=== PATIENT | female | born 1940 | race Caucasian/White ===

== ENCOUNTER → 2017-11-19 | Day surgery (SDC) | payer MEDICARE, BC ==
[~2017-11-19] VITALS: Ht 167.6 cm; Wt 59.3 kg
[~2017-11-19] MED LIST: APREPITANT 40 MG CAP ONE; APREPITANT 40 MG CAP PO ONE; ASPI81CH6 PO; ASPI81TA82 PO; BIOT1000 PO; BIOTCAP PO; CHLORHEXIDINE GLUCONATE 2 % 1 PACK (2 CLOTHS) TOPICAL PRN; DEXAMETHASONE SOD PHOS 4 MG/ML VIAL IV ONE; DO NOT ADM ANY ANTICOAGULANT DRUGS PRN; EZET10 PO; FERRIC SUBSULFATE 8 ML TOP SOLN TOPICAL ONE; FISH1000 PO; KETOROLAC TROMETHAMINE 30 MG/ML (IVP) VIAL IV PUSH PRN; KETOROLAC TROMETHAMINE 30 MG/ML (IVP) VIAL ONE; LACTATED RINGER'S 1000 ML INJ 1,000 ML IV ONE; LACTATED RINGER'S 1000 ML IV PRN; LIDOCAINE HCL 1% PF 5 ML SYRINGE OTHER ONE; METO25CR PO; METO25TA3 PO; METO50CR PO; METO50TA PO; METOPROLOL TARTRATE 25 MG TAB PO PRN; MIDAZOLAM HCL 2 MG/2 ML VIAL ONE; MOEX15TA PO; MULT-65 PO; OCUVTAB4 PO; ONDANSETRON HCL 4 MG/2 ML VIAL IV ONE; POVIDONE IODINE 5% (ANTISEPSIS KIT) 4 APPLICATIONS EACH NARE PRN; PREM0.622 VAGINAL; PRESCAP5 PO; PROPOFOL 200 MG/20 ML AMP IV ONE; REST0.05 EACH EYE; SODIUM CHLORID 0.9% 500 ML IV PRN; SUCCINYLCHOLINE CHLORIDE 200 MG/10 ML VIAL IV ONE; TAB-TAB PO; VITA1000 PO; VITA250C3 CHEW; VITATAB25 PO
--- NOTE | 2017-11-19 14:10 | MP ---
cc: Meaghan Zepeda MD,Юлия Powell DATE OF OPERATION: 11/19/2017 DATE OF PROCEDURE: 11/19/2017 PREOPERATIVE DIAGNOSES: 1. Postmenopausal bleeding. 2. 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 POSTOPERATIVE DIAGNOSES: 1. Postmenopausal bleeding. 2. 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 3. Right-sided pelvic mass. PROCEDURE PERFORMED: Examination under anesthesia, fractional dilation and curettage, cervix biopsy. SURGEON: Meaghan Zepeda MD ACTIVITIES COORDINATOR: Joe first cook. ANESTHESIA: Laryngeal mask anesthesia. ESTIMATED BLOOD LOSS: 20 mL. PATIENT HISTORY: A 77-year-old female, postmenopausal bleeding, had an outside evaluation, a CAT scan that showed no overt evidence of metastatic disease. There was a mucinous polypoid growth that was removed from the endocervix that showed atypical cells. 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 She was seen in our office and counseled, and given that the cervix and the endometrium both showed cells that were abnormal, it was recommended that we try to further clarify the origin and extent of the problem, so that we can make more specific ultimate treatment recommendations. She is seen again in the preop holding area where the findings and plan of care were reviewed. Questions were asked and answered. She expressed understanding and agreed. FINDINGS: On exam under anesthesia, there is no appreciably enlarged inguinal lymph nodes. External genitalia without mass or lesion. The cervix grossly appears normal, but is firm in consistency and there is a collection of mucin in the endocervical canal that grossly is suggestive of a nabothian cyst. The cervix is circumferentially smooth around the perimeter in the uterus and cervix are mobile. The uterine cavity sounds to 6 cm. On the right side, there is an approximately 3 cm mass-like fullness that seems to be contiguous with the lower uterine segment on the right side of the uterus as it moves with motion and palpation of the uterus and cervix, but does not seem to be a parametrial infiltration. It is possible that it could be an ovary that is adherent to the right side of the uterus. No other mass or nodularity detected. On curetting, there was mucinous tissue obtained from the endocervix. There was a mild to moderate amount of tissue obtained from the endometrium that had some polypoid fragments that appeared abnormal such that if neoplasm is indeed present, it appears to most likely be arising from the endometrium. To ensure clarification, given that the cervix itself was quite firm, several biopsies were taken from the ectocervix and were also sent for permanent histopathologic analysis. DESCRIPTION OF PROCEDURE: She was taken to the operating room and placed in dorsal lithotomy position, and after laryngeal mask anesthesia was administered, timeout was undertaken, she was identified by site recognition and hospital ID talia and the proposed procedure was reviewed and confirmed. She was carefully positioned in lithotomy position. Exam under anesthesia was performed, prepped and draped in sterile fashion, and in-and-out catheterization of bladder was performed. Tenaculum was placed on the cervix. Followup exam was performed with findings as described above. Endocervical curetting was obtained with multiple passes circumferentially through the endocervical canal with predominantly mucus obtained and some scant amount of tissue. The cervix was dilated further to allow for a small endometrial curet with curettings performed circumferentially, multiple passes with tissue as obtained above posteriorly and the uterine wall of the endometrium was gritty and it seemed normal as did the anterior wall. There was some polypoid fullness and smoothness along the right and left fundal regions of the endometrium. Cervix biopsies were then taken at the 2 o'clock, 6 o'clock and 10 o'clock positions where the cervix felt firm, although there was no grossly visible neoplasm, biopsies were taken to ensure that there was no infiltrative tumor below the surface. All sites were rendered hemostatic with topical Monsel's solution. The tenaculum was removed and the tenaculum site was rendered hemostatic with Monsel's solution. Pelvic exam confirmed all sites were hemostatic. There were no remaining foreign objects in the vagina. Preliminary and final counts were correct. She was returned to dorsal supine position and pending reversal of anesthesia,when I left the operating room to precede her to the postanesthesia care unit. MD GURPREET Castillo/RENZO , 01:27 PM , 02:09 PM
[2017-11-19 14:55] VITALS: BP 176/81; PULSE 57; RESP 18; TEMP 97.7; O2SAT 98
== END | disposition home or self-care (01) ==
LOC: HSDC 08:18
PROVIDERS: ATTEND Obstetrics & Gynecology Gynecologic Oncology
DX: C54.1 Malignant neoplasm of endometrium (principal); N95.0 Postmenopausal bleeding; I10 Essential (primary) hypertension
CPT/HCPCS: 00940; 58120; 86850; 86900; 86901; 88305; 88341; 88342; J0330; J1100; J1885; J2250; J2405; J3010; J7120; J8501

== ENCOUNTER 2017-12-03 05:46 | Observation (INO) | payer MEDICARE, BC ==
[~2017-12-03] VITALS: Ht 167.6 cm; Wt 58.5 kg
[~2017-12-03 05:46] MED LIST changes: -APREPITANT 40 MG CAP ONE; -APREPITANT 40 MG CAP PO ONE; -ASPI81TA82 PO; -BIOTCAP PO; -CHLORHEXIDINE GLUCONATE 2 % 1 PACK (2 CLOTHS) TOPICAL PRN; -DEXAMETHASONE SOD PHOS 4 MG/ML VIAL IV ONE; -DO NOT ADM ANY ANTICOAGULANT DRUGS PRN; -FERRIC SUBSULFATE 8 ML TOP SOLN TOPICAL ONE; -FISH1000 PO; -KETOROLAC TROMETHAMINE 30 MG/ML (IVP) VIAL IV PUSH PRN; -KETOROLAC TROMETHAMINE 30 MG/ML (IVP) VIAL ONE; -LACTATED RINGER'S 1000 ML INJ 1,000 ML IV ONE; -LACTATED RINGER'S 1000 ML IV PRN; -LIDOCAINE HCL 1% PF 5 ML SYRINGE OTHER ONE; +METO-426 PO; -METO25CR PO; -METO25TA3 PO; -METO50CR PO; -METO50TA PO; -METOPROLOL TARTRATE 25 MG TAB PO PRN; -MIDAZOLAM HCL 2 MG/2 ML VIAL ONE; -ONDANSETRON HCL 4 MG/2 ML VIAL IV ONE; -POVIDONE IODINE 5% (ANTISEPSIS KIT) 4 APPLICATIONS EACH NARE PRN; -PREM0.622 VAGINAL; -PRESCAP5 PO; -PROPOFOL 200 MG/20 ML AMP IV ONE; -SODIUM CHLORID 0.9% 500 ML IV PRN; -SUCCINYLCHOLINE CHLORIDE 200 MG/10 ML VIAL IV ONE; -TAB-TAB PO; -VITATAB25 PO
[2017-12-03] MEDS ORDERED: HEPARIN SODIUM - SQ 10,000 UNITS/ML VIAL SQ SCH (06:15)
[2017-12-03] MEDS ORDERED: LACTATED RINGER'S 1000 ML IV PRN (06:15)
[2017-12-03] MEDS ORDERED: CHLORHEXIDINE GLUCONATE 2 % 1 PACK (2 CLOTHS) TOPICAL PRN (06:15)
[2017-12-03] MEDS ORDERED: POVIDONE IODINE 5% (ANTISEPSIS KIT) 4 APPLICATIONS EACH NARE PRN (06:15)
[2017-12-03] MEDS ORDERED: ceFAZolin 1,000 MG/NS 100 ML IV SCH ×2 (06:15)
[2017-12-03] MEDS ORDERED: INSULIN HUMAN REGULAR 1,000 UNITS/10 ML VIAL SQ PRN (06:15)
[2017-12-03] MEDS ORDERED: SODIUM CHLORID 0.9% 500 ML IV PRN (06:15)
[2017-12-03] MEDS ORDERED: METOPROLOL TARTRATE 25 MG TAB PO PRN (06:15)
[2017-12-03] MEDS ORDERED: ACETAMINOPHEN 1000 MG/100 ML 100 ML IV ONE (06:51)
[2017-12-03 06:54] LABS: AUTOMATED NEUTROPHIL # 3.4 TH/MM3 (1.8-7.7); BASOPHIL % 0.8 % (0.0-2.0); EOSINOPHIL % 0.8 % (0.0-4.0); HEMATOCRIT 39.6 % (35.0-46.0); HEMOGLOBIN 13.4 GM/DL (11.6-15.3); LYMPH % 16.9 % (9.0-44.0); LYMPHOCYTE # 0.8 TH/MM3 (1.0-4.8); MEAN CELL VOLUME 90.8 FL (80.0-100.0); MEAN CORPUSCULAR HEMOGLOBIN 30.7 PG (27.0-34.0); MEAN CORPUSCULAR HGB CONC 33.8 % (32.0-36.0); MEAN PLATELET VOLUME 9.3 FL (7.0-11.0); MONO % 9.7 % (0.0-8.0); MONOCYTE # 0.5 TH/MM3 (0-0.9); NEUT % 71.8 % (16.0-70.0); PLATELET COUNT 156 TH/MM3 (150-450); RED BLOOD COUNT 4.36 MIL/MM3 (4.00-5.30); RED CELL DISTRIBUTION WIDTH 13.1 % (11.6-17.2); WHITE BLOOD COUNT 4.7 TH/MM3 (4.0-11.0)
[2017-12-03 07:03] LABS: INTERNATIONAL NORMALIZED RATIO 1.1 RATIO; PROTHROMBIN TIME - PATIENT 11.2 SEC (9.8-11.6)
[2017-12-03] MEDS ORDERED: APREPITANT 40 MG CAP ONE (07:14)
[2017-12-03 07:28] LABS: ALBUMIN 4.1 GM/DL (3.4-5.0); ALT (GPT) 39 U/L (10-53); AST (GOT) 33 U/L (15-37); BICARBONATE 29.2 MEQ/L (21.0-32.0); BLOOD UREA NITROGEN 9 MG/DL (7-18); CHLORIDE 104 MEQ/L (98-107); CREATININE 0.76 MG/DL (0.50-1.00); GLOMERULAR FILTRATION RATE 73 ML/MIN (>89); GLUCOSE,RANDOM 91 MG/DL (74-106); SODIUM (NA) 142 MEQ/L (136-145)
[2017-12-03 07:30] LABS: ALKALINE PHOSPHATASE 73 U/L (45-117); TOTAL BILIRUBIN ADULT 0.8 MG/DL (0.2-1.0)
[2017-12-03] MEDS ORDERED: LIDOCAINE 1%/EPINEPHrine 1:100,000 SOLN 20 ML VIAL INFIL ONE (08:43)
[2017-12-03] MEDS ORDERED: DO NOT ADM ANY ANTICOAGULANT DRUGS PRN (11:07)
[2017-12-03] MEDS ORDERED: *MEPERIDINE 25 MG INJ VIAL PERIprocedural Use ONLY ONE (11:11)
[2017-12-03] MEDS ORDERED: LORazepam 0.5 MG TAB PO PRN (11:15)
[2017-12-03] MEDS ORDERED: ONDANSETRON HCL 4 MG/2 ML VIAL IVP PRN (11:15)
[2017-12-03] MEDS ORDERED: diphenhydrAMINE HCL 25 MG CAP PO PRN (11:15)
[2017-12-03] MEDS ORDERED: SODIUM CHLORIDE 0.9% FLUSH 10 ML FLUSH IV FLUSH PRN (11:15)
[2017-12-03] MEDS ORDERED: traMADol HCL 50 MG TAB PO PRN (11:15)
[2017-12-03] MEDS ORDERED: MIDAZOLAM HCL 2 MG/2 ML VIAL ONE (11:17)
[2017-12-03] MEDS ORDERED: *ONDANSETRON 4 MG VIAL PERIprocedural Use ONLY ONE (11:43)
[2017-12-03] MEDS ORDERED: *morphine SULFATE 4 MG/ML PERIprocedure ONLY ONE (11:46)
[2017-12-03] MEDS ORDERED: NEOSTIGMINE 5 MG/5 ML SYRINGE IV PUSH ONE (12:00)
[2017-12-03] MEDS ORDERED: GLYCOPYRROLATE 1 MG/5 ML SYRINGE IV PUSH ONE (12:00)
[2017-12-03] MEDS ORDERED: ONDANSETRON HCL 4 MG/2 ML VIAL IV ONE (12:00)
[2017-12-03] MEDS ORDERED: KETOROLAC TROMETHAMINE 30 MG/ML (IVP) VIAL IV PUSH ONE (12:00)
[2017-12-03] MEDS ORDERED: DEXAMETHASONE SOD PHOS 4 MG/ML VIAL IV ONE (12:00)
[2017-12-03] MEDS ORDERED: hydrALAZINE HCL 20 MG/ML VIAL IV ONE (12:00)
[2017-12-03] MEDS ORDERED: ROCURONIUM INJ 50 MG/5 ML SYRINGE IV PUSH ONE (12:00)
[2017-12-03] MEDS ORDERED: ePHEDrine/NS 25 MG/5 ML SYRINGE IV ONE (12:00)
[2017-12-03] MEDS ORDERED: LIDOCAINE HCL 1% PF 5 ML SYRINGE OTHER ONE (12:00)
[2017-12-03] MEDS ORDERED: PROPOFOL 200 MG/20 ML AMP IV ONE (12:00)
[2017-12-03] MEDS ORDERED: PHENYLEPH/NS 1000 MCG/10 ML SYR IV ONE (12:00)
[2017-12-03] MEDS: D5-1/2 NS + KCL 20 MEQ INJ 1,000 ML IV SCH ×2 (12:40→22:40)
[2017-12-03 13:45] VITALS: BP 141/80; PULSE 80; RESP 18; TEMP 95.2; O2SAT 99
--- NOTE | 2017-12-03 14:04 | EKG ---
Date Performed: 12/03/2017 Time Performed: 06:48:16 PTAGE: 77 years EKG: Sinus rhythm ANTEROSEPTAL MYOCARDIAL INFARCTION , OF INDETERMINATE AGE ABNORMAL ECG NO PREVIOUS TRACING DOCTOR: Jeannette Poe Interpretating Date/Time 12/03/2017 13:59:40
--- NOTE | 2017-12-03 15:07 | PD.ONC.PN ---
Subjective Subjective Remarks post op note: pt is resting in bed with daughter at bedside only c/o nausea, daughter tells me her mom is sensitive to medications...explained the IV narcotics she received could be causing nausea. I explained that she would be getting scheduled Toradol for pain but if she needed anything additional then she could ask for Tramadol that is ordered for her. states pain is controlled at this time. Objective Data Date Time Temp Pulse Resp B/P (MAP) Pulse Ox O2 Delivery O2 Flow Rate FiO2 12/03/17 13:45 95.2 80 18 141/80 (100) 99 12/03/17 13:00 97.4 70 16 124/56 (78) 100 Nasal Cannula 2 12/03/17 12:30 70 16 129/63 (85) 98 Nasal Cannula 2 12/03/17 12:15 62 16 147/65 (92) 98 Nasal Cannula 2 12/03/17 12:00 70 16 132/68 (89) 98 Nasal Cannula 2 12/03/17 11:45 68 16 138/69 (92) 99 Nasal Cannula 2 12/03/17 11:30 96.1 66 16 138/67 (90) 98 Nasal Cannula 2 12/03/17 11:15 72 16 146/71 (96) 98 Nasal Cannula 2 12/03/17 11:04 96.7 78 16 134/65 (88) 98 Nasal Cannula 2 12/03/17 06:30 98.3 61 16 179/98 (125) 95 12/03/17 12/03/17 12/03/17 06:59 14:59 22:59 Intake Total 2600 ml Output Total 2550 ml Balance 50 ml Result Diagram: 12/03/17 0640 12/03/17 0640 Laboratory Results Laboratory Tests Test 12/03/17 06:40 White Blood Count 4.7 TH/MM3 Red Blood Count 4.36 MIL/MM3 Hemoglobin 13.4 GM/DL Hematocrit 39.6 % Mean Corpuscular Volume 90.8 FL Mean Corpuscular Hemoglobin 30.7 PG Mean Corpuscular Hemoglobin Concent 33.8 % Red Cell Distribution Width 13.1 % Platelet Count 156 TH/MM3 Mean Platelet Volume 9.3 FL Neutrophils (%) (Auto) 71.8 % Lymphocytes (%) (Auto) 16.9 % Monocytes (%) (Auto) 9.7 % Eosinophils (%) (Auto) 0.8 % Basophils (%) (Auto) 0.8 % Neutrophils # (Auto) 3.4 TH/MM3 Lymphocytes # (Auto) 0.8 TH/MM3 Monocytes # (Auto) 0.5 TH/MM3 Eosinophils # (Auto) 0.0 TH/MM3 Basophils # (Auto) 0.0 TH/MM3 CBC Comment DIFF FINAL Differential Comment Prothrombin Time 11.2 SEC Prothromb Time International Ratio 1.1 RATIO Activated Partial Thromboplast Time 25.9 SEC Blood Urea Nitrogen 9 MG/DL Creatinine 0.76 MG/DL Random Glucose 91 MG/DL Total Protein 7.0 GM/DL Albumin 4.1 GM/DL Calcium Level 9.0 MG/DL Alkaline Phosphatase 73 U/L Aspartate Amino Transf (AST/SGOT) 33 U/L Alanine Aminotransferase (ALT/SGPT) 39 U/L Total Bilirubin 0.8 MG/DL Sodium Level 142 MEQ/L Potassium Level 3.4 MEQ/L Chloride Level 104 MEQ/L Carbon Dioxide Level 29.2 MEQ/L Anion Gap 9 MEQ/L Estimat Glomerular Filtration Rate 73 ML/MIN Administered Medications Medications (Trade) Dose Ordered Sig/Al Route PRN Reason Start Time Stop Time Status Last Admin Dose Admin Heparin Sodium (Porcine) (Heparin Inj) 5,000 units FELLER SEAM OPERATOR SQ 12/03/17 06:15 12/03/17 18:00 12/03/17 06:52 Cefazolin Sodium 1000 mg/Sodium Chloride 100 ml @ 200 mls/hr FELLER SEAM OPERATOR IV 12/03/17 06:15 12/03/17 18:30 12/03/17 07:10 Lactated Ringer's 1,000 ml @ 30 mls/hr Q24H PRN IV SEE LABEL COMMENTS 12/03/17 06:15 12/06/17 06:14 12/03/17 06:30 Povidone Iodine (Betadine 5% Antisepsis Kit) 1 applic FELLER SEAM OPERATOR PRN EACH NARE SEE LABEL COMMENTS 12/03/17 06:15 12/06/17 06:14 12/03/17 06:45 Chlorhexidine Gluconate (Chlorhexidine 2% Cloth) 3 pack FELLER SEAM OPERATOR PRN TOPICAL SEE LABEL COMMENTS 12/03/17 06:15 12/06/17 06:14 12/03/17 06:00 Potassium Chloride/Dextrose/ Sod Cl 1,000 ml @ 100 mls/hr Q10H IV 12/03/17 13:00 12/03/17 12:40 Objective Remarks GENERAL: Well-nourished, well-developed patient. SKIN: Warm and dry. HEAD: Normocephalic. EYES: No scleral icterus. No injection or drainage. CARDIOVASCULAR: Regular rate and rhythm without murmurs. RESPIRATORY: Breath sounds equal bilaterally. No accessory muscle use. GASTROINTESTINAL: SS are c/d/i EXTREMITIES: teds and scds MUSCULOSKELETAL: Adequate muscle tone. NEUROLOGICAL: No obvious focal deficit. Awake, alert, and oriented x3. PSYCHIATRIC: Appropriate mood and affect; insight and judgment normal. Assessment/Plan Problem List: (1) Postoperative nausea ICD Codes: R11.0 - Nausea; Z98.890 - Other specified postprocedural states Status: Acute Plan: Zofran 4 mg was given in PACU will add Reglan 10mg Q 6 hours prn (2) Post-operative state ICD Codes: Z98.890 - Other specified postprocedural states Status: Acute Plan: s/p RA assisted lap hyst with parcial omentectomy and lymph node bx post op orders in chart ADAT as nausea subsides IS to bedside Toradol IV and Tramadol PRN greene to be discharged in the morning will anticipate discharge tomorrow. Derrek Cornejo December 03, 2017 15:07
[2017-12-03] MEDS: METOCLOPRAMIDE HCL 10 MG/2 ML VIAL IV PUSH SCH ×2 (15:26→23:42)
[2017-12-03] MEDS: KETOROLAC TROMETHAMINE 30 MG/ML (IVP) VIAL IVP SCH ×2 (15:26→22:41)
[2017-12-03 20:00] VITALS: BP 124/64; PULSE 77; RESP 18; TEMP 98.5; O2SAT 77
[2017-12-03 20:39] VITALS: O2SAT 99
[2017-12-03] MEDS ORDERED: [UNRECOGNIZED DRUG - OTHER] EACH EYE SCH (21:00)
[2017-12-03] MEDS: SODIUM CHLORIDE 0.9% FLUSH 10 ML FLUSH IV FLUSH SCH (22:41)
[2017-12-04] VITALS: BP 130/64; PULSE 80; RESP 20; TEMP 97.6; O2SAT 98
[2017-12-04] MEDS: KETOROLAC TROMETHAMINE 30 MG/ML (IVP) VIAL IVP SCH ×2 (02:00→09:27)
[2017-12-04 04:00] VITALS: BP 131/66; PULSE 63; RESP 18; TEMP 98.3; O2SAT 99
[2017-12-04 06:11] LABS: AUTOMATED NEUTROPHIL # 10.4 TH/MM3 (1.8-7.7); BASOPHIL % 0.3 % (0.0-2.0); HEMATOCRIT 34.6 % (35.0-46.0); HEMOGLOBIN 11.8 GM/DL (11.6-15.3); LYMPHOCYTE # 0.9 TH/MM3 (1.0-4.8); MEAN CELL VOLUME 90.6 FL (80.0-100.0); MEAN CORPUSCULAR HGB CONC 34.2 % (32.0-36.0); MEAN PLATELET VOLUME 9.5 FL (7.0-11.0); MONO % 7.9 % (0.0-8.0); NEUT % 84.8 % (16.0-70.0); PLATELET COUNT 138 TH/MM3 (150-450); RED BLOOD COUNT 3.82 MIL/MM3 (4.00-5.30); WHITE BLOOD COUNT 12.3 TH/MM3 (4.0-11.0)
[2017-12-04 06:33] LABS: BICARBONATE 27.1 MEQ/L (21.0-32.0); CALCIUM 8.2 MG/DL (8.5-10.1); CREATININE 0.75 MG/DL (0.50-1.00)
--- NOTE | 2017-12-04 07:22 | MP ---
cc: Meaghan Zepeda MD,Loni Powell MD DATE OF OPERATION: 12/03/2017 PREOPERATIVE DIAGNOSIS: Uterine papillary serous carcinoma. POSTOPERATIVE DIAGNOSIS: 1. Uterine papillary serous carcinoma. 2. Intraperitoneal adhesions. PROCEDURE PERFORMED: Robotic-assisted laparoscopic hysterectomy, bilateral salpingo-oophorectomy, partial omentectomy, bilateral pelvic lymph node biopsies, lysis of adhesions. SURGEON: Meaghan Zepeda MD. ROCK CUTTER: Joe dental assistant medical assistant. ANESTHESIA: General endotracheal anesthesia. ESTIMATED BLOOD LOSS: 50 mL. IV FLUIDS: 2500 mL. URINE OUTPUT: 800 mL. HISTORY: A 77-year-old female with postmenopausal bleeding and atypical Pap smear. Further evaluation showed a high grade adenocarcinoma with serous features. It was further evaluated and clarified on fractional dilation and curettage. It seemed to be of endometrial origin. She was counseled regarding these findings. TREATMENT RECOMMENDATIONS: She is seen again in the preop holding area. Questions were asked and answered. She expressed a good understanding and agreed to move forward with surgery. FINDINGS: Uterine cavity sounded to 7 cm. In the peritoneal cavity, the distal omentum was adherent in the pelvis to the right pelvic sidewall. There were loops of small bowel adherent in the same region seemingly consistent with her prior appendectomy. There were also adhesions against the anterior abdominal wall in the region of the prior laparoscopic cholecystectomy incisions. She had some mild diverticulum without overt diverticulitis with some adhesions against the left pelvic sidewall between the colon and the left pelvic sidewall. There were no peritoneal implants. The liver, diaphragm edges were smooth and although the omentum was adherent, it grossly appeared normal. The tubes and ovaries appeared normal except for what appeared to be a paratubal cyst on the right side. There were no overtly neoplastic appearing lymph nodes. There were some borderline prominent lymph nodes. There were a few borderline prominent lymph nodes in the pelvis. No appreciable adenopathy in the paraaortic region. The uterus, once removed for preliminary assessment, showed the tumor to be of endometrial origin with invasion into the myometrium. On preliminary, no overt evidence of extension into the cervix. PROCEDURE: She was taken to the operating room, placed in the dorsal lithotomy position after general endotracheal anesthesia was administered. Time-out was undertaken. She was identified by site recognition and hospital ID bracelet and the proposed procedure was reviewed and confirmed. She was carefully positioned in padded Cno stirrups. Her arms were padded and secured to the sides. She was further secured to the operating table with egg crate padding and tape and across chest over the shoulder fashion. All sites noted to be properly aligned with no malalignment or pressure points. She was prepped and draped in a sterile fashion, placed in high lithotomy position. The cervix grasped. The uterine cavity sounded. Cervix dilated. A standard VCare manipulator inserted and secured in the usual fashion. Langston catheter placed in the bladder. She was returned to low lithotomy position. A change of sterile gloves was undertaken and we completed prepping in anticipation of laparoscopy. Prior to surgery, I had the opportunity to speak with Dr. Chanda Lua, Remote Pilot Operator. She was gracious to answer questions and provide information. She was familiar with Renetta Clay. My questions were regarding her recent repair of retinal detachment and determine if Trendelenburg position for laparoscopy was safe or whether or not there were any contraindications and Dr. Lua had previously cared for this patient and felt that there were no contraindications and the Trendelenburg position should be safe and was not contraindicated and I am grateful for her input. Accordingly, she was placed in slight Trendelenburg position with manual elevation of the abdominal wall and direct laparoscopic visualization. A 5 mm cannula was placed in the left upper quadrant. An atraumatic entry was confirmed. Carbon dioxide gas was insufflated into the peritoneal cavity. An 8 mm cannula was placed in the right upper quadrant, left lateral quadrant and a 12 mm cannula placed in the midline above the umbilicus. Lysis of adhesions was carried out with blunt and sharp dissection to freed the adhesions that were described and to mobilize the tissue, mobilize the bowel from the right lower quadrant so it could be retracted above the pelvic brim and clear the abdominal wall of adhesions. She was placed in a bit more, but limited Trendelenburg just enough to allow the small bowel to be folded back from the pelvis into the abdomen and 3 Ray-Minoo sponges were placed around the root of the small bowel mesentery. After peritoneal washings were obtained for cytology, the anatomy was surveyed with findings as described above. The robotic system was brought into the operative field, attached in the usual fashion. Monopolar scissors, fenestrated bipolar forceps and ProGrasp manipulators were placed in arms number 1, 2 and 3 respectively and I took my place at the surgeon's console. Partial omentectomy was performed. The distal omentum was adherent to the pelvis and vascular tissue was isolated, rendered hemostatic with bipolar cautery and transected in a stepwise fashion removing approximately 1/2 of the infracolic omentum for histopathologic analysis and to free it from its adhesions. Further sharp dissection was carried out to mobilize the terminal ileum from its adhesions so that the bowel could be further reduced and the retracted above the operative field and the distal omentum remained adherent to the right adnexa which was delivered en bloc with the hysterectomy specimen. The right round ligament was isolated, cauterized, and transected. The anterior and posterior leafs of the broad ligament were opened. Right ureter was identified. The right infundibulopelvic ligament was isolated. The intervening peritoneum was opened. Infundibulopelvic ligament was isolated to the level of the pelvic brim where it was cauterized and transected. Posterior peritoneum opened on the right side uterus and cervix. The right vesicouterine peritoneum dissected off the lower uterine segment and cervix. Right uterine vessels were skeletonized, cauterized and transected as were the cardinal, paracervical and uterosacral ligaments. Attention was directed toward the left side. The left round ligament isolated, cauterized, and transected. The anterior and posterior leafs of the broad ligament were opened. Left ureter was identified. Left infundibulopelvic ligament was isolated. Infundibulopelvic ligament was isolated to the level of the pelvic brim where it was cauterized and transected. Additional adhesions were lysed to further mobilize the colon to free adhesions in the cul-de-sac, posterior peritoneum and the vesicouterine peritoneum was dissected off the lower uterine segment as the uterine vessels were skeletonized. The uterine vessels were cauterized and transected as were the cardinal, paracervical and uterosacral ligaments. The right paravesical, pararectal and obturator spaces were opened. Visible and palpable inspection of the lymphatic basin showed there to be a couple of slightly prominent lymph nodes in the external iliac region. These were removed with bipolar cautery and sharp dissection, placed on a Ray-Minoo sponge in the right pericolic gutter. The remainder of the lymphatic basin was carefully inspected with no other adenopathy detected. The paraaortic and paracaval region were inspected and palpated. No adenopathy detected. Attention was redirected toward the left pelvis. In the left pelvis, the left paravesical, obturator and perirectal spaces were developed. Lymphatics were inspected visually and by palpation. There was a slightly prominent lymph node in the external iliac and a couple of prominent lymph nodes in the obturator space each of which were isolated and dissected free with bipolar cautery and sharp dissection combined with the lymphatic tissue from the right side. The lymphatic basin was inspected. No remaining adenopathy. A series of intraperitoneal biopsies were obtained from the pelvis and the abdomen including adhesions that were previously lysed and all of which were grossly normal other than that adhesions. These were placed adjacent to the lymphatic tissue on the Ray-Minoo sponge. Now, attention redirected to the pelvis. Colpotomy was performed the cervix from the upper vagina. The specimen was withdrawn transvaginally which included uterus, cervix, bilateral tubes and ovaries and the attached omentum and a pneumo-occluder balloon was placed in the vagina to maintain pneumoperitoneum. An Endo Catch bag was introduced transvaginally. The Ray-Minoo sponge with the lymphatic tissue and the peritoneal biopsies was placed in the Endo Catch bag and withdrawn transvaginally and the specimens were after delivery and labeled appropriately for permanent histopathologic analysis. The remaining 2 Ray-Minoo sponges in the peritoneal cavity were now withdrawn transvaginally using ring forceps. They were removed individually, inspected and noted to be removed in their entirety. There were no remaining foreign objects in the peritoneal cavity. Preliminary counts were correct. Instruments 1 and 3 exchanged for needle drivers as the 0 Vicryl suture was introduced. The vaginal cuff was closed starting at the left corner full thickness closure incorporating the posterior peritoneum and edge of the uterosacral ligament, tied via instrument tie. The closure was held on countertraction as a running continuous full thickness closure was carried across the vaginal apex to the opposite corner where it was similarly fixed, secured and tied. The needle was cut. The pelvis was thoroughly irrigated. Small bleeders rendered hemostatic with bipolar cautery. There was a good margin between the bladder edge and the vaginal cuff suture line. Good peristalsis of ureters bilaterally. Neurovascular structures were intact. It was felt that all reasonable surgical objectives had been completed. Therefore, the robotic instruments were removed. The robotic system was disengaged from the operative field. I reentered the bedside under sterile condition. We closed the 12 mm fascial defect with 0 Vicryl sutures using a needle fascia closure apparatus. They were tied securely which rendered the fascia completely airtight and hemostatic. Remaining cannulas were withdrawn, carbon dioxide gas was removed from the peritoneal cavity. 3-0 Vicryl subcuticular and 3-0 Vicryl subcutaneous, followed by Steri-Strips were used to close these incisions. She was returned to dorsal lithotomy position. Pelvic exam confirmed the vaginal cuff was well supported and completely hemostatic. There were no vaginal lacerations. There were no remaining foreign objects in the vagina. There was some superficial irritation to the vaginal mucosa with some erythema, but without active bleeding and to assist in continued hemostasis one gram of Andrei hemostatic agent was placed in the vaginal canal and along the vaginal cuff. Final counts were correct. She was returned to dorsal supine position and was pending reversal of anesthesia when I left the operating room to precede her to the postanesthesia care unit. MD GURPREET Castillo/OSORIO , 06:36 AM , 07:21 AM
[2017-12-04] MEDS ORDERED: TRAM50 PO (08:13)
--- NOTE | 2017-12-04 08:29 | MD ---
cc: Meaghan Zepeda MD, Thomas PA DATE OF DISCHARGE: 12/04/2017 PROCEDURE: 12/03/2017, robotic-assisted laparoscopic hysterectomy, bilateral salpingo-oophorectomy, partial omentectomy, bilateral pelvic lymph node biopsies and intraperitoneal biopsies. DIAGNOSIS: Uterine papillary serous carcinoma. HOSPITAL COURSE: She did well in the early postop period. She remained hemodynamically stable, tolerated oral intake, Langston catheter removed pending voiding. In's and out's [id number]. Labs this morning show an H and H of 11.8 and 34.6. Electrolytes normal, BUN and creatinine 7 and 0.75, potassium 3.6. PHYSICAL EXAMINATION: Afebrile, pulse 63-80, respirations 18-20, blood pressure 124 to 141/64 to 80, O2 saturations greater than or equal to 98%. One isolated 77% is noted. It is completely out of line with all the other values. She is asymptomatic and this appears to be an error as her O2 saturations ranged from 98 to 100% throughout the night and currently at 99%. PHYSICAL EXAM: She is alert and oriented x 3 in no acute distress. LUNGS: Clear. CARDIOVASCULAR: Regular rate and rhythm. ABDOMEN: Soft. Incisions clean and dry. GYNECOLOGIC: No bleeding. EXTREMITIES: Nontender. ASSESSMENT: Postoperative day #1, doing well. FINDINGS AT THE TIME OF SURGERY: Preliminary pathology and steps taken were discussed. Activities and restrictions again reviewed. Questions were asked and answered. She expressed a good understanding and agreed. PLAN: I anticipate she will meet criteria for discharge to home today. She is to resume prior medications. She will have a prescription for tramadol if she needs that, otherwise, she can take [id number] pain medications as needed. She is to contact our office to ensure that she has a followup in approximately 2 weeks or to contact our office should she have any questions or problems in the interim. She expressed good understanding and agreed. Meaghan Zepeda MD KLM/DL , 08:16 AM , 08:28 AM
[2017-12-04 08:30] VITALS: BP 145/72; PULSE 62; RESP 18; TEMP 97.9; O2SAT 99
[2017-12-04] MEDS ORDERED: MOEXIPRIL 15 MG PO SCH (09:00)
[2017-12-04] MEDS ORDERED: METOPROLOL TARTRATE 25 MG TAB PO SCH (09:00)
[2017-12-04] MEDS ORDERED: EZETIMIBE 10 MG TAB PO SCH (09:00)
[2017-12-04] MEDS: SODIUM CHLORIDE 0.9% FLUSH 10 ML FLUSH IV FLUSH SCH (09:27)
[2017-12-04] MEDS: METOCLOPRAMIDE HCL 10 MG/2 ML VIAL IV PUSH SCH (09:28)
== END 2017-12-04 13:32 | disposition home or self-care (01) ==
LOC: HSDC 05:46 → HSDI 11:03 → HCIN 13:38
PROVIDERS: ADMIT Obstetrics & Gynecology Gynecologic Oncology; ATTEND Obstetrics & Gynecology Gynecologic Oncology
DX: C54.8 Malignant neoplasm of overlapping sites of corpus uteri (principal); K66.0 Peritoneal adhesions (postprocedural) (postinfection); R11.0 Nausea; I10 Essential (primary) hypertension; R94.31 Abnormal electrocardiogram [ECG] [EKG]; Z01.810 Encounter for preprocedural cardiovascular examination
CPT/HCPCS: 00840; 38570; 58552; 80048; 80053; 85025; 85610; 85730; 86850; 86900; 86901; 88112; 88307; 88309; 88331; 93005; 94150; 96365; 96375; 96376; G0378; J0131; J0360; J0690; J1100; J1644; J1885; J2175; J2250; J2270; J2370; J2405; J2710; J2765; J3010; J3480; J7120; 88305; J8501

== ENCOUNTER 2018-01-08 05:58 | Day surgery (SDC) | payer MEDICARE, BC ==
[~2018-01-08] VITALS: Ht 167.6 cm; Wt 58.2 kg
[~2018-01-08 05:58] MED LIST changes: +TRAM50 PO
[2018-01-08 07:10] VITALS: BP 172/98; PULSE 64; RESP 16; TEMP 97; O2SAT 94
[2018-01-08] MEDS ORDERED: ceFAZolin 2 GM PREMIX 50 ML - implanted port/tunneled catheter insertion IV SCH (07:15)
[2018-01-08] MEDS ORDERED: VANCOMYCIN 1 GM/200 ML PREMIX ON-CALL IV SCH (07:15)
[2018-01-08] MEDS ORDERED: CHLORHEXIDINE GLUCONATE 2 % 1 PACK (2 CLOTHS) TOPICAL SCH (07:15)
[2018-01-08] MEDS ORDERED: POVIDONE IODINE 5% (ANTISEPSIS KIT) 4 APPLICATIONS EACH NARE SCH (07:15)
[2018-01-08 07:35] LABS: AUTOMATED NEUTROPHIL # 3.2 TH/MM3 (1.8-7.7); BASOPHIL # 0.1 TH/MM3 (0-0.2); BASOPHIL % 1.1 % (0.0-2.0); EOSINOPHIL # 0.2 TH/MM3 (0-0.4); EOSINOPHIL % 3.2 % (0.0-4.0); HEMATOCRIT 41.4 % (35.0-46.0); HEMOGLOBIN 13.9 GM/DL (11.6-15.3); LYMPH % 22.3 % (9.0-44.0); LYMPHOCYTE # 1.1 TH/MM3 (1.0-4.8); MEAN CELL VOLUME 90.7 FL (80.0-100.0); MEAN CORPUSCULAR HEMOGLOBIN 30.4 PG (27.0-34.0); MEAN CORPUSCULAR HGB CONC 33.6 % (32.0-36.0); MEAN PLATELET VOLUME 8.7 FL (7.0-11.0); MONOCYTE # 0.6 TH/MM3 (0-0.9); NEUT % 61.4 % (16.0-70.0); PLATELET COUNT 171 TH/MM3 (150-450); RED BLOOD COUNT 4.56 MIL/MM3 (4.00-5.30); RED CELL DISTRIBUTION WIDTH 13.2 % (11.6-17.2); WHITE BLOOD COUNT 5.2 TH/MM3 (4.0-11.0)
[2018-01-08 07:44] LABS: INTERNATIONAL NORMALIZED RATIO 1.1 RATIO; PROTHROMBIN TIME - PATIENT 10.8 SEC (9.8-11.6)
[2018-01-08] MEDS ORDERED: LIDOCAINE 1%/EPINEPHrine 1:100,000 SOLN 30 ML VIAL ONE (07:52)
[2018-01-08] MEDS ORDERED: MIDAZOLAM HCL 5 MG/5 ML VIAL ONE (07:54)
[2018-01-08] MEDS ORDERED: fentaNYL CITRATE 250 MCG/5 ML AMP ONE (07:54)
[2018-01-08 08:50] VITALS: BP 148/72; PULSE 75; RESP 18; TEMP 97.5; O2SAT 93
[2018-01-08] MEDS ORDERED: SODIUM CHLORIDE 0.9% FLUSH 10 ML FLUSH IVF PRN (09:00)
[2018-01-08 09:05] VITALS: BP 136/67; PULSE 69; RESP 18; O2SAT 92
[2018-01-08 09:35] VITALS: BP 152/70; PULSE 63; RESP 18; O2SAT 92
[2018-01-08 10:05] VITALS: BP 166/80; PULSE 64; RESP 16; O2SAT 94
[2018-01-08 10:35] VITALS: BP 152/73; PULSE 65; RESP 18; O2SAT 95
--- NOTE | 2018-01-08 14:39 | RADRPT ---
EXAM DATE: 01/08/2018 9:02 AM EDT AGE/SEX: 77 years / Female INDICATIONS: Patient presents with uterine cancer in need of port placement for chemotherapy treatme nt. CLINICAL DATA: This is the patient's initial encounter. Patient reports that signs and symptoms have been present for 2 months and indicates a pain score of 0/10. MEDICAL/SURGICAL HISTORY: . HTNEndometrial cancer . T and ACataract surgeryTubal ligation COMPARISON: No prior exams available for comparison. FLUORO TIME (min): 1.07 IMAGE SERIES: 2 SEDATION TIME (min): 30 MEDICATION(S): 2 mg midazolam (Versed) IV 100 mcg fentanyl (Sublimaze) IV Vancomycin within 2 hrs of procedure, Ancef (or alternative) within 1 hr of procedure. DEVICE(S): Right 8fr Xcela plus port . . PROCEDURE : 1. Continuous pulse oximetry and EKG monitoring. 2. Intravenous conscious sedation. 3. Ultrasound guidance for venous access. 4. Fluoroscopic guided implantable central venous port placement. The patient was placed supine. The neck was prepped in sterile fashion. Full sterile technique was u sed, including cap, mask, sterile gloves and gown, and a large sterile sheet. Hand hygiene and 2% ch lorhexidine Betadine was utilized per protocol for cutaneous antisepsis with appropriate dry time for site. Sterile gel and sterile probe cover were utilized for ultrasound guidance. The skin and sub cutaneous tissues were infiltrated with local anesthetic solution. Under direct ultrasound guidance, central venous access was accomplished in the targeted vessel. The ultrasound images depicting access guidance were stored and saved to PACS for permanent record. A s ubcutaneous pocket was created using blunt dissection. The port was introduced to the pocket. The c atheter tubing was fed through a subcutaneous tunnel to the venotomy site. The catheter tubing was c ut to a suitable length and then was introduced through a valved Peel-Away sheath and positioned with catheter tubing tip at the cavo-atrial junction level. The pocket incision was closed with subcutic ular Vicryl suture. Steri-Strips were applied. The port was flushed and locked with heparin solutio n per protocol. Sterile dressing was applied to the site. The patient tolerated the procedure well. Conscious sedation was performed with the prescribed dosages and duration as above in the presence of an independent trained radiology nurse to assist in the monitoring of the patient. EKG and oximetry remained stable throughout the procedure. The patient tolerated the procedure well and there were no complications. The patient was sent to post anesthesia recovery in stable condition. CONCLUSION: Uncomplicated ultrasound and fluoroscopic guided implanted central venous port catheter placement as described in detail above. An 8 Upper [employer] Power port was placed. Electronically signed by: Logan Martinez MD 01/08/2018 1:56 PM EDT
== END 2018-01-08 11:00 | disposition home or self-care (01) ==
LOC: HROP 05:58 → HRIP 06:02 → HROP 11:00
PROVIDERS: ATTEND Obstetrics & Gynecology Gynecologic Oncology
DX: C55 Malignant neoplasm of uterus, part unspecified (principal); I10 Essential (primary) hypertension; I49.9 Cardiac arrhythmia, unspecified; Z01.818 Encounter for other preprocedural examination
CPT/HCPCS: 36561; 76937; 77001; 85025; 85610; 85730; 99152; 99153; C1788; J0690; J1642; J2250; J3010; J3370